=== PATIENT | male | born 1995 | race Caucasian/White ===

== ENCOUNTER 2021-01-19 14:13 | Emergency (ER) | payer OTHER, SELFPAY ==
[2021-01-19 14:15] VITALS: BP 137/97; PULSE 79; RESP 16; TEMP 37.4; O2SAT 99; BMI 22.2
[2021-01-19 15:47] VITALS: BP 137/97; PULSE 79; RESP 16; TEMP 37.4; O2SAT 99
--- NOTE | 2021-01-19 15:52 | CT_ITS ---
STUDY: CT ABDOMEN AND PELVIS WITH CONTRAST REASON FOR EXAM: Male, 26 years old. abd pain RADIATION DOSAGE (If Supplied By Facility): CTDIvol = ( 9.56 ) mGy, DLP = ( 495.24 ) mGycm TECHNIQUE: Transaxial images were obtained from the dome of the diaphragm to the symphysis pubis without oral contrast. IV 100mL Isovue-370 was administered. Sagittal and coronal images were reconstructed. Individualized dose optimization techniques were used for this CT. COMPARISON: None. FINDINGS: The visualized lung bases are unremarkable. The visualized portions of the heart are within normal limits. Normal liver. Normal gallbladder and extrahepatic biliary system. Normal spleen. Normal pancreas. Normal bilateral adrenal glands. Normal right kidney. Normal left kidney. Normal visualized stomach. Normal small intestine. Normal colon. The appendix is visualized and appears normal. Normal abdominal aorta. Normal inferior vena cava. Normal retroperitoneum. Normal urinary bladder, including on delayed imaging. Mild free fluid in the left more than right pelvis. Normal abdominal wall. Normal osseous structures. CT/Abdomen/Pelvis W IV Cont ONLY IMPRESSION: Pelvic free fluid, unknown cause. No small or large bowel wall thickening. Electronically Signed: Stephen Modi MD ([place]) at 16:35 EST , Service support ,
[2021-01-19 16:08] LABS: Absolute Lymphocyte Count 1.35 X10^3/uL (0.83-4.51); Absolute Neutrophil Count 4.7 X10^3/uL (2.0-7.7); Basophil# 0.03 X10^3/uL; Basophil% 0.4 % (0-1); Eosinophil# 0.04 X10^3/uL; Eosinophils% 0.6 % (0-5); Hematocrit 46.8 % (40-54); Hemoglobin 16.5 g/dL (13.0-16.5); Lymphocyte # 1.35 X10^3/ul (0.83-4.51); Lymphocyte % 19.5 % (19-41); Mean Corp Hgb Conc 35.3 g/dL (32-36); Mean Corpuscular Hgb 31.7 pg (27.0-32.0); Mean Corpuscular Volume 89.8 fL (80-94); Mean Platelet Vol. 8.2 fl (6.2-12.0); Monocyte# 0.76 X10^3/uL; NRBC Flagged by Analyzer 0 % (0-5); Neutrophil # 4.71 X10^3/uL (2.7-7.7); Neutrophil % 68.1 % (47-70); Platelet Count 247 K/mm3 (150-450); RBC Distribution Width CV 12.1 % (11.6-14.6); Red Blood Count 5.21 M/mm3 (4.6-6.2); White Blood Count 6.9 K/mm3 (4.4-11.0)
--- NOTE | 2021-01-19 16:08 | EDS_ITS ---
HPI History of Present Illness Chief Complaint: Abd Pain Narrative Narrative: Patient is a 26-year-old male who states he noticed some midepigastric abdominal pain yesterday. He states he ate and then the pain began to worsen. He states the pain has been persistent and more severe for the last 24 hours and secondary to this comes in for evaluation. He reports nausea associate with the pain but denies any vomiting. Patient denies any fevers or chills diarrhea dysuria or constipation. He denies any history of autoimmune intestinal disease or previous history of pancreatitis. PFSH PFSH Medical History no medical history no medical history Home Medications hydrocodone-acetaminophen 1 tab PO Q6H PRN 3 Days #12 tab 01/19/21 [Rx Last Taken Unknown] ondansetron 4 mg PO Q8H PRN #21 tab 01/19/21 [Rx Last Taken Unknown] Allergy/AdvReac Type Severity Reaction Status Date / Time No Known Allergies Allergy Verified 01/19/21 14:14 Social History Smoking Status: Never smoker ROS ROS ED Constitutional Constitutional ED: Denies chills or fever(s) ENT ENT ED: Denies sore throat Cardiovascular Cardiovascular: Denies chest pain Respiratory/Chest Respiratory/Chest: Denies cough or dyspnea Gastrointestinal Gastrointestinal: Reports abdominal pain and nausea; Denies diarrhea or vomiting Genitourinary Genitourinary ED: Denies dysuria Musculoskeletal Musculoskeletal: Denies back pain or myalgias Integumentary Denies rash Neurologic Neurologic: Denies headache(s) EXAM Physical Exam Const Vital Signs: 01/19/21 14:15 01/19/21 15:47 01/19/21 18:13 Temperature 99.4 F H 99.4 F H Temperature Source Temporal Temporal Pulse Rate 79 79 68 Respiratory Rate 16 16 15 Blood Pressure 137/97 H 137/97 H 108/72 Blood Pressure Mean 110 110 84 Pulse Ox 99 99 97 Oxygen Delivery Method Room Air Room Air Room Air Positive well nourished and well developed General Appearance ED: well developed HEENT Reports moist mucous membranes Eyes PERRL and EOMs intact bilaterally General Eye ED: Negative for scleral icterus Neck supple Resp normal respiratory effort and clear to auscultation bilaterally Cardio regular rate and regular rhythm Rate: other Other Details: Radial pulses are plus 2 out of 4 bilaterally are equal and symmetric GI non-distended and no masses GI Narrative: Patient has pain with palpation in the midepigastric region with v oluntary guarding at this site. No distention or increased tympany noted no pulsatile mass. Auscultation: normoactive bowel sounds Back/Spine no CVA tenderness Extremity normal to inspection Neuro oriented x3 and CN's II-XII intact bilaterally Sensorium / Orientation: alert Motor Exam: strength 5/5 throughout Psych mental status grossly normal Skin no rashes or lesions noted MDM MDM MDM Narrative Medical decision making narrative: Patient presented to the ER with abdominal pain greatest in the midepigastric and right upper quadrant and there was some voluntary guarding on exam. Secondary to this I elected to perform basic laboratory studies and a CT scan. Labs showed mild elevation to his total bilirubin but otherwise no acute finding. CT scan revealed no acute infectious or inflammatory pathology. With his elevated bilirubin and abdominal pain I did elect to add a gallbladder ultrasound. The ultrasound revealed no acute infectious pathology or signs of gallstones. On reevaluation he is still resting comfortably and his abdomen is soft and there is no more voluntary guarding. Therefore at this time I feel patient may have a hypokinetic gallbladder based on his elevated bilirubin and persistent pain after eating but as his overall work-up is negative is safe for discharge. Lab Data Attestation: I reviewed the patient's lab results. Labs: Laboratory Results - last 24 hr 01/19/21 01/19/21 15:55 15:55 WBC 6.9 RBC 5.21 Hgb 16.5 Hct 46.8 MCV 89.8 MCH 31.7 MCHC 35.3 RDW Std Deviation 40.0 RDW Coeff of [place] 12.1 Plt Count 247 MPV 8.2 Immature Gran % (Auto) 0.400 Neut % (Auto) 68.1 Lymph % (Auto) 19.5 [place] % (Auto) 11.0 H Eos % (Auto) 0.6 Baso % (Auto) 0.4 Absolute Neuts (auto) 4.7 Absolute Lymphs (auto) 1.35 Nucleated RBC % 0 Sodium 138 Potassium 3.5 Chloride 106 Carbon Dioxide 27.0 Anion Gap 5 BUN 9 Creatinine 0.98 Estim Creat Clear Calc 104.06 Est GFR (MDRD) Af Amer 119 Est GFR (MDRD) Non-Af 98 BUN/Creatinine Ratio 9.2 L Glucose 91 Calcium 9.1 Total Bilirubin 2.70 H Direct Bilirubin 0.31 H AST 19 ALT 36 Alkaline Phosphatase 73 Total Protein 7.3 Albumin 3.8 Globulin 3.5 Lipase 69 L Radiography Diagnostic Testing: Clinical Impression(s) from Imaging Studies Abdomen/Pelvis CT 01/19/21 15:52 IMPRESSION: Pelvic free fluid, unknown cause. No small or large bowel wall thickening. Electronically Signed: Stephen Modi MD ([place]) at 16:35 EST , Service support , Gallbladder Ultrasound 01/19/21 16:39 IMPRESSION: Normal right upper quadrant ultrasound examination. Electronically Signed: Leilani Ambrocio MD at 18:02 EST Tel , Service support , Discharge Plan Triage Chief Complaint: Abd Pain ED Provider: Gaurav Constantino Dx/Rx/DC Orders Clinical Impression: Nonspecific abdominal pain Instructions: Abdominal Pain Prescriptions: New hydrocodone-acetaminophen 5-325 mg tablet 1 tab PO Q6H PRN (Reason: pain) 3 Days Qty: 12 RF: 0 ondansetron 4 mg tablet,disintegrating 4 mg PO Q8H PRN (Reason: nausea and vomiting) Qty: 21 RF: 0 Primary Care Provider: Hakan Kohler Referrals: Hakan Kohler DO [Primary Care Provider] - Activity Restrictions/Additional Instructions: Please talk to your family doctor about a HIDA scan secondary to your persistent abdominal pain that seem to occur after eating Disposition Disposition: Home, Self Care
[2021-01-19 16:23] LABS: AST(SGOT) 19 U/L (15-37); Alanine Aminotransfer ALT/SGPT 36 U/L (16-61); Albumin, Serum 3.8 g/dL (3.2-5.0); Alkaline Phosphatase 73 U/L (45-117); Anion Gap 5 (5-15); BUN 9 mg/dL (7-18); BUN/Creat Ratio 9.2 RATIO (10-20); Bilirubin, Direct 0.31 mg/dL (0.00-0.30); Calcium,Total 9.1 mg/dL (8.5-10.1); Chloride 106 mmol/L (98-107); Creatinine, Serum 0.98 mg/dL (0.70-1.30); EST Glomerular Filtration Rate 98 mL/min (>60); Est Glom Filt Rate - Afr Amer 119 mL/min (>60); Estimated Creatinine Clearance 104.06 ml/min; Globulin 3.5 g/dL (2.2-4.2); Glucose 91 mg/dL (74-106); Lipase 69 U/L (73-393); Potassium 3.5 mmol/L (3.5-5.1); Protein, Total 7.3 g/dL (6.4-8.2); Sodium Level 138 mmol/L (136-145)
[2021-01-19] MEDS: 0.9% Normal Saline 1,000 ML 999 ML IV (16:36)
[2021-01-19] MEDS: Ondansetron 4 MG/2 ML Vial IV (16:36)
[2021-01-19] MEDS: Morphine 4 MG/ML Syringe IV (16:36)
--- NOTE | 2021-01-19 16:39 | US_ITS ---
STUDY: ABDOMINAL ULTRASOUND - RIGHT UPPER QUADRANT REASON FOR VISIT: Male, 26 years old. Midline abdominal pain for one day TECHNIQUE: Ultrasound evaluation of the right upper quadrant was performed with real-time and static griffin-scale imaging. TECHNICAL QUALITY: Adequate. COMPARISON: December CT FINDINGS: Liver: The liver measures 13.4 cm. There is normal echogenicity of the liver. The bile ducts are within normal limits. There is hepatic color flow. The direction of portal flow is hepatopetal. There is no demonstrated mass lesion. Gallbladder: Normal distended gallbladder. The gallbladder wall measures 2 mm. There is a negative sonographic Ahumada''s sign. There is no pericholecystic fluid. There are no gallstones. Common Bile Duct (C.B.D.): The common bile duct measures 3 mm. Pancreas: Normal size of the head, body and tail of the pancreas. There is normal echogenicity of the pancreas. There is no demonstrated pancreatic mass or cyst. Right Kidney: Normal size of the right kidney. The right kidney measures 9.3 x 4.6 x 4.1 cm. Normal renal cortex. The right cortex measures 1.6 cm. There is no demonstrated renal mass or cyst. There is no right hydronephrosis. US/Gallbladder IMPRESSION: Normal right upper quadrant ultrasound examination. Electronically Signed: Leilani Ambrocio MD at 18:02 EST Tel , Service support ,
[2021-01-19 18:13] VITALS: BP 108/72; PULSE 68; RESP 15; O2SAT 97
== END 2021-01-19 18:40 | disposition home or self-care (01) ==
PROVIDERS: Emergency Provider Emergency Medicine; PCP Family Medicine
DX: R10.9 Unspecified abdominal pain (principal)
CPT/HCPCS: 74177; 76705; 80048; 80076; 83690; 85025; 96374; 96375; 99284; Q9967; A4216; J2405